=== PATIENT | female | born 1975 | race Caucasian/White ===

== ENCOUNTER 2017-02-25 11:02 | Emergency (ER) | payer OTHER ==
[~2017-02-25] VITALS: Ht 167.6 cm; Wt 104.1 kg
[~2017-02-25 11:02] MED LIST: BUSP15TA3 PO; RANI150C4 PO; SERT50TA PO
[2017-02-25 11:12] VITALS: BP 121/86; PULSE 121; RESP 16; O2SAT 97
[2017-02-25] MEDS ORDERED: OMEP20CA11 PO (11:16)
[2017-02-25] MEDS ORDERED: ONDA4TAB12 SL (11:16)
[2017-02-25] MEDS ORDERED: Ondansetron 2 mg/mL 2 mL Inj IVPUSH ONE (11:30)
[2017-02-25] MEDS ORDERED: 0.9% Sodium Chloride 1,000 ML IV ONE (11:30)
--- NOTE | 2017-02-25 11:46 | ED.REPORT ---
HPI- Female Date of Service Feb 25, 2017 ED Provider: Mannie Adams PA-C Sonia is a 41-year-old female who presents with chief complaint of vaginal abscess. She reports that she first noticed pain and swelling to the left side of her vagina 4 days ago. Last night she noticed that it formed a headache similar to a pimple. She asked her partner to pop it for her. "It feels like it popped to the inside." Her partner states that he expressed a small amount of purulent material that was extremely foul-smelling. Patient reports that her pain is still quite significant in that she experienced vomiting 3 times without blood yesterday and has felt quite feverish. She has measured temperatures as high as 100.7. Nursing Notes Stated Complaint: FEVER/VOMITING/CHILLS Chief Complaint: Skin Rash/Abscess Nursing Notes Reviewed: Yes Allergies: Coded Allergies: No Known Drug Allergies (Verified Allergy, Unknown, 02/25/17) Scheduled Cephalexin (Keflex) 500 Mg Capsule 500 MG PO QID Omeprazole (Omeprazole) 20 Mg Capsule.dr 20 MG PO BID Ranitidine (Ranitidine) 150 Mg Capsule 150 MG PO BID Sulfamethoxazole/Trimeth 800-160 mg (Bactrim DS) 1 Each Tablet 1 TABLET PO BID Scheduled PRN Ondansetron ODT (Ondansetron ODT) 4 Mg Tab.rapdis 4 MG SL QID PRN PRN For Nausea oxyCODONE (oxyCODONE) 5 Mg Tablet 5-10 MG PO Q4H PRN PRN For Pain General Time Seen by MD: 11:18 Chief Complaint Vulva pain left Sudden in Onset?: No Past Medical History Past Medical History Depression, anxiety IBS, Gastroparesis, GERD, pulmonary nodules Smoking History Former Smoker Review of Systems General: Admits fever, chills, malaise. HEENT: Denies congestion, headache, sore throat. Respiratory: Denies dyspnea, cough, shortness of breath, wheezing. Cardiovascular: Denies chest pain, palpitations. Gastrointestinal: Admits vomiting, abdominal pain. Denies diarrhea Otherwise as noted in HPI. Physical Exam General: Well appearing, well developed, well nourished, no acute distress. Head: Atraumatic, normocephalic. Eyes: No scleral icterus or injection. No discharge. Vision grossly intact. ENT: Voice clear, hearing grossly intact. Respiratory: Regular rate and rhythm. Breath sounds present, clear to auscultation and equal bilaterally. No respiratory distress. No increased work of breathing, speaks in complete sentences. Cardiovascular: Regular rate and rhythm, without murmur, gallop or rub. No pedal edema. Gastrointestinal: Abdomen flat and non-tender without guarding or rebound. Bowel sounds normoactive. : Small draining wound, productive of purulent and bloody material near the posterior of the left labia majora. Significant redness, swelling, induration over the left labia majora extending onto the mons pubis. No area of fluctuance. No vaginal discharge noted. Skin: Warm and dry. Neurological: Grossly nonfocal. Psychological: Alert and oriented. Speech appropriate, linear and logical. Behavior appropriate. Initial Vital Signs Vital Signs (First) Date Time Temp Pulse Resp B/P Pulse Ox O2 Delivery O2 Flow Rate FiO2 02/25/17 11:12 37.2 121 16 121/86 97 Room Air Initial VS: Reviewed, Vital signs abnormal (tachycardia) Interpretation & Diagnostics Lab Results Interpretation Result Diagram: 02/25/17 1155 02/25/17 1155 Test 02/25/17 11:55 White Blood Count 18.4th/mm3 (3.8-10.1) Red Blood Count 4.29mil/mm3 (3.90-5.20) Hemoglobin 12.7g/dL (12.0-15.6) Hematocrit 37.9% (35.0-46.0) Mean Corpuscular Volume 88.3fL (81-100) Mean Corpuscular Hemoglobin 29.6pg (27.0-35.0) Mean Corpuscular Hemoglobin Concent 33.5% (32.0-37.0) Red Cell Distribution Width 13.3% (12.3-15.4) Platelet Count 199bil/L (150-400) Neutrophils (%) (Auto) 85.8% (40-74) Lymphocytes (%) (Auto) 7.1% (14-46) Monocytes (%) (Auto) 6.5% (4-12) Eosinophils (%) (Auto) 0.2% (0-5) Basophils (%) (Auto) 0.2% (0-3) Sodium Level 135mEq/L (134-144) Potassium Level 3.9mEq/L (3.5-5.2) Chloride Level 100mEq/L (97-108) Carbon Dioxide Level 19mmol/L (18-29) Blood Urea Nitrogen 8mg/dL (6-24) Creatinine 0.71mg/dL (0.57-1.00) Estimat Glomerular Filtration Rate 131mL/min (>59) Glucose Level 124mg/dL (60-99) Lactic Acid Level 0.6mmol/L (0.4-2.0) Calcium Level 9.5mg/dL (8.5-10.1) Total Bilirubin 0.6mg/dL (0.0-1.2) Aspartate Amino Transf (AST/SGOT) 22U/L (0-50) Alanine Aminotransferase (ALT/SGPT) 20U/L (0-32) Alkaline Phosphatase 62U/L (25-150) Total Protein 7.3g/dL (6.4-8.4) Albumin 4.1g/dL (3.4-5.0) Re-Eval/Medical Decision Med Decision/Clinical Course 41-year-old female presents with chief complaint of vaginal abscess is noticed 4 days ago. She reports that her partner tried to pop it she has felt worse since then. Complains of fever, vomiting. His examination reveals a draining sore on the left posterior labia as well as induration and tenderness in the left labia that progresses up onto the mons pubis. I find no fluctuance suggestive of a pus pocket to drain. While she is initially tachycardic at presentation and she was slightly febrile at urgent care prior to transfer here, she is currently afebrile and her heart rate is within normal limits. CBC reveals a leukocytosis with left shift at 18.4, however lactate is normal. Blood cultures were drawn and wound cultures were taken. I discussed this case with Dr. Horton. At this point we do not believe she is septic or that there is an abscess that would benefit from drainage. I believe this is cellulitis. Patient is given 1 g of ceftriaxone in the emergency department. Discharged to home with a prescription for Keflex and Bactrim and instructions for primary care follow-up tomorrow. Advised over-the- counter analgesia with oxycodone supplement with precautions. Provide emergency return precautions. Patient understands and agrees with the plan. Re-Evaluation/Progress : Time of Eval: 12:56 Patient Status: Condition improved Re-Evaluation/Progress Note: Patient's pain is improved with ketorolac and morphine. I discussed findings of lab tests. Patient is amenable to receiving 1 g of IV ceftriaxone and being discharged home for follow-up tomorrow with primary care. Discharge & Departure Impression: Primary Impression: Cellulitis Site of cellulitis: other site Qualified Code: L03.818 - Cellulitis of other sites Disposition: Home Discharge Condition All VS Reviewed: Yes Condition: Stable Patient Instructions: Cellulitis (ED) Additional Instructions: Evaluation for an abscess in the emergency department. History and physical suggests an abscess that is already draining, but the presence of infection in the skin surrounding it. I do not see any indication to cut this wound open anymore. Lab tests are reassuring that you do not have a serious, systemic infection at this time. I believe you are stable and safe to be discharged home. We have given you a strong IV antibiotic in the emergency department. I will write a prescription for 2 other antibiotics to be taken for the next week. Please start these tonight. Rest, and avoid walking as much as possible to prevent irritation to this area. Apply warm, moist compresses to the affected area for approximately 20 minutes at a time several times a day. This will encourage drainage. The pain is best treated with 400 mg of ibuprofen (Advil, Motrin) every 6 hours , or 1000 mg of acetaminophen (Tylenol) every 6 hours. These drugs can be taken at the same time for more severe pain. I will write a prescription for a small amount of oxycodone to be taken every 4-6 hours for pain not controlled by these other medications. Please do not drive or drink alcohol within 4 hours of taking this medication. Use the ondansetron prescribed by the urgent care for nausea. Follow-up with your primary care provider tomorrow to be sure this is progressing as expected. Return to emergency department for any new or worsening symptoms including increasing pain, fever, racing heart, feeling ill. Referrals: Carmelo Goncalves DO (PCP) EDSupervising Provider for APC: Sanford Horton MD Attending Statement Discussed patient with JAMIE Adams. Was asked to evaluate patient. Evaluate patient independently and agree with plan as above. In brief 41-year-old female with cellulitis no evidence of abscess. White blood cell count is 18, 000. Lactate is normal. Vital signs are stable. Patient was given 1 dose of IV antibiotics. He will be discharged with Bactrim and Keflex with plan for reevaluation by primary doctor tomorrow. Return precautions given regarding signs and symptoms of worsening infection or any other new or worsening symptoms. copies to: Carmelo Goncalves Seth PA-C Feb 25, 2017 11:46 Sanford Horton MD Feb 25, 2017 13:26
[2017-02-25 12:14] LABS: BASOPHILS % (AUTO) 0.2 % (0-3); EOSINOPHILS % (AUTO) 0.2 % (0-5); MONOCYTES % (AUTO) 6.5 % (4-12); Mean Corpuscular Hemoglobin 29.6 pg (27.0-35.0); Mean Corpuscular Volume 88.3 fL (81-100); NEUTROPHILS % (AUTO) 85.8 % (40-74); Platelet Count 199 bil/L (150-400)
[2017-02-25 12:50] VITALS: BP 112/70; PULSE 86; RESP 16; O2SAT 97
[2017-02-25] MEDS ORDERED: cefTRIAXone Inj 1,000 MG in Dextrose 5% Minibag Plus 50 ML IV ONE (12:55)
[2017-02-25] MEDS ORDERED: OXYC5TAB72 PO (13:06)
[2017-02-25] MEDS ORDERED: CEPH-512 PO (14:36)
[2017-02-25] MEDS ORDERED: SULF1TAB7 PO (14:36)
[2017-02-25 14:46] VITALS: BP 122/60; PULSE 82; RESP 18; O2SAT 99
== END 2017-02-25 14:47 | disposition home or self-care (01) ==
LOC: SED 11:02
DX: L03.818 Cellulitis of other sites (principal); R50.9 Fever, unspecified; R11.10 Vomiting, unspecified; K21.9 Gastro-esophageal reflux disease without esophagitis; Z87.891 Personal history of nicotine dependence
CPT/HCPCS: 36415; 80053; 83605; 85025; 87040; 87070; 87077; 87186; 96361; 96365; 96375; 99285; G0463; J0696; J1885; J2270; J2405; J7030